=== PATIENT | female | born 1950 | race Caucasian/White ===

== ENCOUNTER 2017-02-01 11:51 | Day surgery (SDC) | payer OTHER ==
[2017-02-01] MEDS ORDERED: BUPIVACAINE 0.5% 30 ML SDV ONE (12:28)
[2017-02-01] MEDS ORDERED: TRIAMCINOLONE ACETONIDE 40 MG/ML VIAL ONE (12:48)
[2017-02-01] MEDS ORDERED: LR 1,000 ML IV ONE (13:03)
[2017-02-01] MEDS ORDERED: LIDOCAINE 1% 5 ML SDV ID PRN (13:03)
[2017-02-01] MEDS ORDERED: PROPOFOL 200 MG/20 ML VIAL ONE (13:04)
[2017-02-01] MEDS ORDERED: fentaNYL 100 MCG/2 ML INJ ONE (13:04)
--- NOTE | 2017-02-01 14:09 | GOP ---
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 PROCEDURE PERFORMED: Right small finger proximal interphalangeal joint cortisone injection with Maury alog and Marcaine, and left ring finger dorsal interphalangeal joint mucous cyst and bone spur excis ion. FINDINGS: INDICATIONS: A very prominent mucous cyst left ring finger DIP joint with thinning of the overlying skin and significant prominence. Right small finger PIP joint arthritis with stiffness, swelling, and pain with motion. It was felt that cortisone injection to the small finger and excision of the mucous left ring finger was a good option for her at this point. DESCRIPTION OF PROCEDURE: Under digital block anesthesia for the left ring finger using 5 cc of 0.5 % plain Marcaine, the finger achieved adequate anesthesia. The right small finger PIP joint was inj ected with 0.5 cc of Kenalog and about 0.25 cc of Marcaine 0.5% plain. The injection went well with good infiltration of the joint. The left hand and forearm were prepped and draped in the usual fashion. Monitor anesthesia care and sensation were provided by Anesthesiology. A Juan drain was applied at the base of the left rin g finger, and sterile draping exposed the hand and distal 2/3 of the forearm. A C-shaped incision was made transversely at the DIP joint extension creases and then down the ulnar aspect of the digit distal to the DIP joint. The incision was about three-quarters of an inch in t kira. Skin flap was elevated distally, and the mucous cyst was identified and excised completely. I t had typical contents and appearance and therefore, it was not sent to Pathology. There was an und erlying bone spur at the head of the proximal phalanx and base of the distal phalanx ulnarly, which were excised with a bone rongeur down to smooth, healthy cancellous bone. The joint itself did show some degenerative change at the ulnar aspect with partial loss of articular cartilage. The wound was irrigated with body temperature saline several times and then it was assured germinal matrix and extensor tendon were intact, and then skin was closed using horizontal mattress sutures o f 5-0 Prolene. A bulky soft dressing was applied, followed by Coban tape holding it in place. Penr ose drain tourniquet removal resulted in immediate pinking of the digit. She was brought to the recovery area where detailed postoperative instructions were given prior to d ischarge. A prescription for Keflex and tramadol was provided. She had been given a gram of Ancef intravenously prior to commencement of surgery. Followup arrangements in the office for about a wee k postop for dressing and suture removal, and remobilization of the left ring finger DIP joint and f ollowup on the cortisone injection to the right small finger PIP joint. /[id number]/MODL
== END 2017-02-01 14:50 | disposition home or self-care (01) ==
LOC: FSGY 11:51 → EEVIPCON 13:15 → FSGY 14:50
PROVIDERS: ATTEND Specialist
PROC: 0PBT0ZZ Excision of Right Finger Phalanx, Open Approach (ICD-10-PCS; principal; 2017-02-01 13:15)
DX: M71.341 Other bursal cyst, right hand (principal); E03.9 Hypothyroidism, unspecified; M19.141 Post-traumatic osteoarthritis, right hand; E78.5 Hyperlipidemia, unspecified; Z96.653 Presence of artificial knee joint, bilateral
CPT/HCPCS: J2704; J3010; J3301

== ENCOUNTER 2017-03-30 06:01 | Day surgery (SDC) | payer OTHER ==
[2017-03-30] MEDS ORDERED: LIDOCAINE 1% 2 ML INJ ONE (06:28)
[2017-03-30] MEDS ORDERED: LIDOCAINE 1% 5 ML SDV ID PRN (06:34)
[2017-03-30] MEDS ORDERED: LR 1,000 ML IV ONE (06:34)
[2017-03-30] MEDS ORDERED: MIDAZOLAM 2 MG/2 ML VIAL ONE (07:27)
[2017-03-30] MEDS ORDERED: PROPOFOL/EMULSION 500 MG/50 ML BOTTLE IV ONE (07:27)
--- NOTE | 2017-03-30 08:15 | GOP ---
[f rep st] OPERATIVE REPORT DATE OF OPERATION: SURGEON: Yvon Maza MD ANESTHESIA: Monitored anesthesia care. PREOPERATIVE DIAGNOSIS: History of colon polyps. POSTOPERATIVE DIAGNOSIS: 1. Colon polyps x2, status post removal. 2. Diverticulosis. PROCEDURE PERFORMED: Colonoscopy with biopsy. FINDINGS: 1. Two small colon polyps, status post removal. 1. Mild left-sided diverticulosis. INDICATIONS: The patient is a 67-year-old female with a history of Brugada syndrome with an AICD wh o presents for surveillance of colon polyps. She had a history of colon polyps 5 years ago. The ri sks and benefits of the procedure were discussed with the patient and consent obtained. Risks inclu de, but not limited to, bleeding, perforation, risks associated with sedation. The patient is ASA c lass 3. DESCRIPTION OF PROCEDURE: The adult colonoscope was advanced to the terminal ileum, which appeared normal. The cecum, appendiceal orifice, IC valve, were normal. A 2 mm polyp was removed from the a scending colon using cold biopsy forceps. The hepatic flexure, transverse colon, splenic flexure we re normal. A 2 mm polyp was removed from the descending colon using cold biopsy forceps and sent of f to Pathology. Scattered diverticulosis was seen in the descending colon and the sigmoid colon. R etroflexed views in the rectum were normal. RECOMMENDATIONS: 1. Discharge home with escort. 2. Advance diet as tolerated. 3. Follow up the final biopsy results. Results available within 10 days. 4. Repeat surveillance colonoscopy in 5 years at the hospital with monitored anesthesia care. Thank you for allowing me to participate in the care of your patient. Please do not hesitate to oralia l with questions. /[id number]/MODL
[2017-03-30] MEDS ORDERED: LIDOCAINE 2% 5 ML SDV ONE (09:25)
== END 2017-03-30 09:20 | disposition home or self-care (01) ==
LOC: FSGY 06:01
PROVIDERS: ATTEND Internal Medicine Gastroenterology
PROC: 0DJD8ZZ Inspection of Lower Intestinal Tract, Via Natural or Artificial Opening Endoscopic (ICD-10-PCS; principal; 2017-03-30 07:30)
PROC: 0DBK8ZX Excision of Ascending Colon, Via Natural or Artificial Opening Endoscopic, Diagnostic (ICD-10-PCS; principal; 2017-03-30 07:30)
DX: Z12.11 Encounter for screening for malignant neoplasm of colon (principal); D12.2 Benign neoplasm of ascending colon; K57.30 Diverticulosis of large intestine without perforation or abscess without bleeding; Z86.010 Personal history of colon polyps; Z95.810 Presence of automatic (implantable) cardiac defibrillator; I48.91 Unspecified atrial fibrillation; I10 Essential (primary) hypertension; E78.5 Hyperlipidemia, unspecified; Z86.73 Personal history of transient ischemic attack (TIA), and cerebral infarction without residual deficits
CPT/HCPCS: J2250; J2704

== ENCOUNTER → 2017-05-07 | Outpatient (CLI) | payer OTHER | LOC: FIMAGING 08:20 | PROVIDERS: ATTEND Internal Medicine | DX: Z12.31 Encounter for screening mammogram for malignant neoplasm of breast (principal); Z80.3 Family history of malignant neoplasm of breast | CPT/HCPCS: G0202 ==

== ENCOUNTER → 2018-01-24 | Outpatient (CLI) | payer OTHER | LOC: BMCIMAGING 09:42 | PROVIDERS: ATTEND Internal Medicine Endocrinology, Diabetes & Metabolism | DX: Z13.820 Encounter for screening for osteoporosis (principal); M85.89 Other specified disorders of bone density and structure, multiple sites; Z78.0 Asymptomatic menopausal state; Z79.899 Other long term (current) drug therapy ==

== ENCOUNTER → 2018-05-17 | Outpatient (CLI) | payer OTHER | LOC: FIMAGING 13:09 | PROVIDERS: ATTEND Internal Medicine | DX: Z12.31 Encounter for screening mammogram for malignant neoplasm of breast (principal); Z80.3 Family history of malignant neoplasm of breast ==

== ENCOUNTER → 2019-05-19 | Outpatient (CLI) | payer OTHER | LOC: FIMAGING 10:21 ==